=== PATIENT | female | born 1955 | race Caucasian/White ===

== ENCOUNTER → 2019-09-17 | Outpatient (CLI) | payer BC ==
--- NOTE | 2019-09-17 16:30 | KCIC ---
EXAM: Bilateral screening mammogram. HISTORY: 64-year-old female presents for screening mammography. TECHNIQUE: Full-field digital craniocaudal and mediolateral oblique views of both breasts are obtained for evaluation. Computer aided detection with Searchd[employer] software version 9.3 was applied. COMPARISON: There is no recent study for comparison. This exam serves as a new baseline mammogram. BREAST PARENCHYMAL DENSITY: BI-RADS Category 2: Benign finding(s). . FINDINGS: There are 2 adjacent circumscribed nodular densities or single bilobed nodular density within the posterior 2:00 position of the left breast measuring approximately 8 mm in conglomerate. There are loosely clustered microcalcifications within this location. There are benign appearing microcalcifications within the anterior 3:00 position of the right breast and retroareolar left breast. There is a nodular density within the 8:30 position of the right breast at mid to posterior depth. No architectural distortion is seen. IMPRESSION: BI-RADS Category 0: Incomplete. Additional imaging needed. RECOMMENDATION: Further evaluation with spot magnification views of clustered microcalcifications within the posterior 2:00 position of the left breast and bilateral breast sonography to assess nodularity within the posterior 2:00 position of the left breast and 8:30 position of the right breast at mid to posterior depth is recommended. If your mammogram demonstrates that you have dense breast tissue, which could hide abnormalities, and if you have other risk factors for breast cancer that have been identified, you might benefit from supplemental screening tests that may be suggested by your ordering physician. Dense breast tissue, in and of itself, is a relatively common condition. This information is not provided to cause undue concern, but rather to raise your awareness and to promote discussion with your physician regarding the presence of other risk factors, in addition to dense breast tissue. A report of your mammography results will be sent to you and your physician. You should contact your physician if you have any questions or concerns regarding this report. Mammography is a sensitive method for finding small breast cancers, but it does not detect them all and is not a substitute for careful clinical examination. A negative mammogram does not negate a clinically suspicious finding and should not result in delay in biopsying a clinically suspicious abnormality. PQRS compliance statement - Patient information was entered into a reminder system with a target due date for the next mammogram. "Our facility is accredited by the [employer] Mammography [employer]." Electronically signed by: Melva Coburn MD (09/17/2019 4:28 PM) [id number]
== END | disposition home or self-care (01) ==
LOC: KCIC MAMMO 14:37
PROVIDERS: ATTEND Family Medicine
DX: Z12.31 Encounter for screening mammogram for malignant neoplasm of breast (principal); N64.89 Other specified disorders of breast
CPT/HCPCS: 77067

== ENCOUNTER → 2019-10-10 | Outpatient (CLI) | payer BC ==
--- NOTE | 2019-10-10 16:45 | KCIC ---
Left breast diagnostic digital mammogram: Reason for examination: Calcifications on screening mammogram. Comparison is made to previous study dated 09/17/2019. [place]ed compression magnification views were obtained in CC and lateral projections. There continues to be a circumscribed nodule with a fatty hilum consistent with a intramammary lymph node at the 2:00 position posteriorly. Slightly medial and inferior to the lymph node, there are punctate appearing calcification which appear monomorphic and are probably benign. IMPRESSION: Small nodule consistent with an intramammary lymph node at the 2:00 position posteriorly. Calcifications at the 2:00 position medial and inferior to the lymph node with a monomorphic appearance which probably represent benign fibrocystic or adenomatous calcifications. Recommend reevaluation in 6 months. BI-RADS Category 3: Probably benign. Bilateral breast ultrasound: Reason for examination: Bilateral breast nodules. Ultrasound examination was performed bilaterally including the retroareolar and axillary regions. In the right breast, there are some patchy fibrocystic changes at the 8:00 position 5 cm from the nipple measuring 9 mm in size. There is a small 5.6 mm fibrocystic lesion at the 11:00 position 1 cm from the nipple. No suspicious nodules are seen. There is some ductal ectasia in the retroareolar position. No abnormal appearing lymph nodes are seen in the right axilla. In the left breast at the 2:00 position 8 cm from the nipple, there is a 7.3 x 5.6 mm intramammary lymph node which has a benign appearance. No suspicious nodules are seen in the left breast. There is ductal ectasia in the retroareolar position. No abnormal appearing lymph nodes are seen in the left axilla. IMPRESSION: Benign-appearing fibrocystic changes at the 8:00 and 11:00 positions of the right breast. Benign intramammary lymph node at the 2:00 position of the left breast. No suspicious abnormality seen sonographically. Recommend 6 month follow-up mammographically for the calcifications and bilateral ultrasound of the benign-appearing breast nodules. BI-RADS Category 3: Probably Benign. "Our facility is accredited by the [employer] Mammography Program." This patient's information has been entered into a reminder system for the patient to be notified with the results of her examination and a target date for the next mammogram. Electronically signed by: Rubina Clarke MD (10/10/2019 4:43 PM) [email or web address]
== END | disposition home or self-care (01) ==
LOC: KCIC MAMMO 08:01
PROVIDERS: ATTEND Family Medicine
DX: R92.1 Mammographic calcification found on diagnostic imaging of breast (principal); N63.21 Unspecified lump in the left breast, upper outer quadrant
CPT/HCPCS: 76641; 77065